=== PATIENT | female | born 2000 | race Caucasian/White ===

== ENCOUNTER 2023-01-04 13:18 | Emergency (ER) | payer SELFPAY ==
[2023-01-04 13:43] LABS: HCG URINE TEST NEGATIVE (NEGATIVE)
--- NOTE | 2023-01-04 13:57 | XRAY ---
Indication: Foreign body. Comparison: None PA/lateral chest negative for radiopaque foreign body. Normal heart, lungs, and bony thorax.
[2023-01-04 14:07] LABS: Appearance Clear (Clear); Bilirubin Negative (Negative); Blood Negative (Negative); Glucose, Urine Negative (Negative); Ketones Trace (Negative); Leukocyte Esterase Moderate (Negative); Nitrite Negative (Negative); Protein,Urine Dip Negative (Negative); RBC 0-2 /HPF (0-5); Specific Gravity 1.025 (1.005-1.030); Urobilinogen 0.2 mg/dL (0.2)
[2023-01-04 14:08] LABS: ADD URINE CULTURE? YES (NO); Bacteria Moderate /HPF (None Seen); Epithelial Cells Moderate /HPF (None Seen); Hyaline Casts None Seen /LPF (0-2)
--- NOTE | 2023-01-04 14:19 | ERPHSYRPT ---
- History of Present Illness Patient Subjective Stated Complaint: Pt snorted up her nose ring yesterday morning and swallowed it and went to [facility] and they told her that it would pass and did not do an x-ray, pt today states that it hurts to breath and that she can feel in in her upper esophagus Triage Nursing Assessment: Pt works in [employer] at [employer] and so she walked on down to the ER, hypertensive, rates lung pain as 2/10, pt was sleeping when she woke to feeling the nose ring in her throat, pt states that she thinks she can feel it in her upper esophagus, denies any other issues Physician History: 22 yo WF states that she aspirated her nasal stud at 3:00AM. Pt was seen at [facility] and discharged wo imaging per pt. She says that she still feels like it is in her throat. Pt is in NAD w a great airway. Timing/Duration: abrupt onset Severity: mild ENT Location: throat Prearrival Treatment: no prearrival treatment Associated Symptoms: denies symptoms Allergies/Adverse Reactions: Sulfa (Sulfonamide Antibiotics) Allergy (Verified 01/04/23 13:36) Home Medications: No Reportable Medications [No Reported Medications] 01/04/23 [History] Hx Influenza Vaccination/Date Given: Yes Hx Pneumococcal Vaccination/Date Given: No Immunizations Up to Date: Yes Travel Risk - International Travel Have you traveled outside of the country in past 3 weeks: No - Coronavirus Screening Are you exhibiting any of the following symptoms?: No Close contact with a COVID-19 positive Pt in past 14-21 Days: No - Vaccine Status Have you recieved a Covid-19 vaccination: Yes Box Icer: Moderna - Vaccination Dates Date of 2cond Vaccination (if applicable): 2021 - Review of Systems Constitutional: No Symptoms Eyes: No Symptoms Ears, Nose, & Throat: No Symptoms Respiratory: No Symptoms Cardiac: No Symptoms Abdominal/Gastrointestinal: No Symptoms Genitourinary Symptoms: No Symptoms Musculoskeletal: No Symptoms Skin: No Symptoms Neurological: No Symptoms Psychological: No Symptoms Endocrine: No Symptoms Hematologic/Lymphatic: No Symptoms Immunological/Allergic: No Symptoms - Past Medical History Pertinent Past Medical History: No - Past Surgical History Past Surgical History: Yes Female Surgical History: Dilation & Curettage - Social History Smoking Status: Never smoker Exposure to second hand smoke: Yes Drug Use: none Patient Lives Alone: No - Female History Hx Last Menstrual Period: 09/2022 Hx Now: No - Nursing Vital Signs Nursing Vital Signs: Initial Vital Signs Temperature 98.8 F 01/04/23 13:23 Pulse Rate 115 H 01/04/23 13:23 Blood Pressure 161/105 01/04/23 13:23 O2 Sat by Pulse Oximetry 100 01/04/23 13:23 Pain Scale Pain Intensity 2 Hypertensive/Tachy - Physical Exam General Appearance: no apparent distress Eye Exam: bilateral eye: normal inspection, PERRL, EOMI Ear Exam: bilateral ear: auricle normal, canal normal, TM normal Nasal Exam: normal inspection Throat Exam: normal, pharynx normal Neck Exam: normal inspection, non-tender, supple, full range of motion, trachea midline Cardiovascular/Respiratory Exam: normal breath sounds, tachycardia Abdominal Exam: non-tender, soft Neurologic Exam: alert, oriented x 3, cooperative, design eng II-XII nml as tested, normal mood/affect, nml cerebellar function, nml station & gait, sensation nml, No motor deficits, No sensory deficit Skin Exam: normal color, warm, dry, No rash SpO2 Interpretation: normal SpO2: 100 O2 Delivery: Room Air - Course Nursing assessment & vital signs reviewed: Yes - Radiology Exams Chest X-ray Interpretation: Discussed w/ radiologist (CXR neg for FB) - CT Exams Maxillofacial Bones CT Interpretation: Discussed w/radiologist (CT facial bones/sinuses neg for FB per Dr. Jones) Soft Tissue Neck CT Interpretation: Discussed w/radiologist (CT neck neg for FB) Ordered Tests: Active Orders 24 hr Category Date Time Status CHEST 2 VIEWS (PA AND LAT) Stat Exams 01/04/23 13:24 Completed FACIAL BONES WO CONTRAST [CT] Stat Exams 01/04/23 14:17 Completed NECK WO CONTRAST [CT] Stat Exams 01/04/23 14:18 Completed CULTURE,URINE Stat Lab 01/04/23 13:39 Received HCG QUALITATIVE, URINE Stat Lab 01/04/23 13:41 Completed UA W/RFX UR CULTURE Stat Lab 01/04/23 13:39 Completed Lab/Rad Data: Laboratory Results 01/04/23 01/04/23 Range/Units 13:41 13:39 Urine Color Yellow (Yellow) Urine Appearance Clear (Clear) Urine pH 5.0 (4.6-8.0) Ur Specific [place] 1.025 (1.005-1.030) Urine Protein Negative (Negative) Urine Glucose (UA) Negative (Negative) mg/dL Urine Ketones Trace A (Negative) Urine Blood Negative (Negative) Urine Nitrite Negative (Negative) Urine Bilirubin Negative (Negative) Urine Urobilinogen 0.2 (0.2) mg/dL Ur Leukocyte Esterase Moderate A (Negative) U Hyaline Cast (Auto) None Seen (0-2) /LPF Urine Microscopic RBC 0-2 (0-5) /HPF Urine Microscopic WBC 6-10 A (0-5) /HPF Ur Epithelial Cells Moderate A (None Seen) /HPF Urine Bacteria Moderate A (None Seen) /HPF Urine Culture Reflexed YES (NO) Urine HCG, Qual NEGATIVE (NEGATIVE) - Progress Progress Note: 01/04/23 15:13 Nursing note and vital signs reviewed No food or housing insecurities noted Additional history per mother No evidence of metallic FB after extensive Rad studies. Pt in NAD wo dysphagia or respiratory distress. Pt w great airway during entire stay. 01/04/23 16:27 Counseled pt/family regarding: diagnosis, need for follow-up, rad results Medical Desision Making - Independent Historian Additional History obtained from: Mother - Diagnostic Testing Radiological Interpretation: Reviewed by me, Discussed w/ radiologist - Risk of complications Low Risk: Low risk of morbidity from additional dx testing or treatment - Departure Departure Disposition: Home Clinical Impression: Suspected ingested foreign body not found after observation Condition: Stable Critical Care Time: No Referrals: MICHELLE MCKEON FNP [Primary Care Provider] - Follow up/PCP as directed Instructions: Foreign Body, Swallowed, Adult Additional Instructions: Watch stool closely Return to ER as needed
--- NOTE | 2023-01-04 14:48 | XRAY ---
Indication: Foreign body. Multiple contiguous axial images obtained through the neck without contrast. Comparison: None No foreign body. Supra and infraglottic airway widely patent. Normal epiglottis. Parotid and submandibular glands are bilaterally symmetric. No pathologic cervical/supraclavicular lymphadenopathy. Thyroid gland homogeneous. Visualized osseous structures and cervical spine normal. Base of brain and lung apices are unremarkable. Impression: Normal CT neck without contrast exam.
--- NOTE | 2023-01-04 14:50 | XRAY ---
Indication: Foreign body. Multiple contiguous axial images obtained through the facial bones. Sagittal and coronal reformatted images obtained. Comparison: None No foreign body. Nasal passages, nasopharynx and visualized oropharynx widely patent. No acute fracture or suspicious bony lesions. 1 cm right maxillary sinus polyp/retention cyst. Remaining paranasal sinuses and nasal passages are clear. Paranasal sinuses and nasal passages are clear. Incidental right middle turbinate [place] bull[place]. Remaining visualized noncontrasted soft tissues including base of brain unremarkable. Impression: 1. Incidental small right maxillary sinus polyp/retention cyst and right middle turbinate [place] bullosa. 2. Remaining CT facial bones normal.
[2023-01-04 15:19] VITALS: BP 130/85; PULSE 96
[2023-01-04 16:29] VITALS: O2SAT 100
== END 2023-01-04 15:23 | disposition home or self-care (01) ==
LOC: ED 13:18
DX: Z03.821 Encounter for observation for suspected ingested foreign body ruled out (principal)
CPT/HCPCS: 36415; 70486; 70490; 71046; 81001; 81025; 87086; 99283